=== PATIENT | female | born 1970 | race African-American/Black ===

== ENCOUNTER 2021-07-12 08:56 | Emergency (ER) | payer OTHER ==
[~2021-07-12] VITALS: Ht 160 cm; Wt 73.8 kg
[2021-07-12 10:22] LABS: BASOPHILS % 1.5 % (0.0-2.0); EOSINOPHILS % 3.8 % (0.0-5.0); HEMATOCRIT. 42.8 % (36.0-48.0); HEMOGLOBIN. 13.7 g/dL (12.0-16.0); LYMPHOCYTES % 40.9 % (20.0-50.0); MEAN CORPUSCULAR HEMOGLOBIN 26.4 pg (28.0-32.0); MEAN CORPUSCULAR VOLUME 82.6 fL (81.0-99.0); MEAN PLATELET VOLUME 7.1 fl (7.4-10.4); MONOCYTES % 14.6 % (2.0-8.0); NEUTROPHILS % 39.2 % (40.0-76.0); PLATELET 304 x1000/uL (130-400); RED BLOOD CELL COUNT 5.18 mill/uL (4.2-5.4); RED CELL DISTRIBUTION WIDTH 15.1 % (11.6-14.6)
[2021-07-12 10:29] LABS: CHLORIDE 108 mEq/L (98-107)
[2021-07-12 10:32] LABS: ETHANOL BLOOD < 10 mg/dL
[2021-07-12 11:02] LABS: CLARITY URINE CLEAR (CLEAR); COLOR URINE YELLOW (YELLOW); KETONES URINE NEGATIVE (NEGATIVE); LEUKOCYTE ESTERASE URINE 3+ (NEGATIVE); NITRITE URINE NEGATIVE (NEGATIVE); OCCULT BLOOD URINE NEGATIVE (NEGATIVE); PROTEIN URINE NEGATIVE (NEGATIVE); SPECIFIC GRAVITY URINE 1.003 (1.005-1.030); UROBILINOGEN URINE 0.2 E.U./dL (0.2-1.0)
[2021-07-12 11:39] LABS: *AMPHETAMINES SCREEN URINE NEGATIVE (NEGATIVE); *BARBITURATES SCREEN URINE NEGATIVE (NEGATIVE); *BENZODIAZEPINES SCREEN URINE NEGATIVE (NEGATIVE); *COCAINE SCREEN URINE NEGATIVE (NEGATIVE); OPIATES URINE SCREEN NEGATIVE (NEGATIVE)
[2021-07-12 11:40] LABS: CANNABINOID URINE SCREEN NEGATIVE (NEGATIVE); PHENCYCLIDINE URINE SCREEN NEGATIVE (NEGATIVE)
[2021-07-12 11:41] LABS: METHADONE URINE SCREEN NEGATIVE (NEGATIVE)
[2021-07-12] MEDS ORDERED: ACETAMINOPHEN 325MG TABLET PO ONE (12:15)
[2021-07-12 14:46] VITALS: BP 131/95
== END 2021-07-12 14:46 | disposition short-term general hospital (02) ==
LOC: ER 08:56 → CANBEDREQ 07-13 05:47
DX: I63.9 Cerebral infarction, unspecified (principal); I10 Essential (primary) hypertension; Z88.0 Allergy status to penicillin; Z88.1 Allergy status to other antibiotic agents; Z98.890 Other specified postprocedural states
CPT/HCPCS: 36415; 71045; 80053; 80305; 80320; 81003; 82962; 85025; 87077; 87186; 93005; 99285; G0480

== ENCOUNTER 2022-03-03 17:41 | Emergency (ER) | payer MEDICAID, OTHER ==
[~2022-03-03] VITALS: Ht 170.2 cm; Wt 100.0 kg
[2022-03-03] MEDS ORDERED: LIDOCAINE HCL 1% 20ML VIAL (Pyxis) INJ INFIL ONE (18:15)
[2022-03-03] MEDS ORDERED: TETANUS, DIPHTHERIA, PERTUSSIS VAC/PF 0.5ML (>10YR OLD) IM ONE (18:15)
[2022-03-03 18:37] LABS: CLARITY URINE CLEAR (CLEAR); COLOR URINE YELLOW (YELLOW); KETONES URINE NEGATIVE (NEGATIVE); LEUKOCYTE ESTERASE URINE 2+ (NEGATIVE); NITRITE URINE NEGATIVE (NEGATIVE); OCCULT BLOOD URINE NEGATIVE (NEGATIVE); PROTEIN URINE NEGATIVE (NEGATIVE); SPECIFIC GRAVITY URINE 1.004 (1.005-1.030); UROBILINOGEN URINE 0.2 E.U./dL (0.2-1.0)
[2022-03-03 18:41] LABS: HEMATOCRIT. 34.9 % (36.0-48.0); HEMOGLOBIN. 11.3 g/dL (12.0-16.0); MEAN CORPUSCULAR HEMOGLOBIN 25.5 pg (28.0-32.0); MEAN CORPUSCULAR VOLUME 78.6 fL (81.0-99.0); MEAN PLATELET VOLUME 6.9 fl (7.4-10.4); PLATELET 379 x1000/uL (130-400); RED BLOOD CELL COUNT 4.44 mill/uL (4.2-5.4); RED CELL DISTRIBUTION WIDTH 17.5 % (11.6-14.6)
[2022-03-03 18:42] LABS: CHLORIDE 100 mEq/L (98-107)
[2022-03-03 18:47] LABS: *AMPHETAMINES SCREEN URINE NEGATIVE (NEGATIVE); *BARBITURATES SCREEN URINE NEGATIVE (NEGATIVE); *BENZODIAZEPINES SCREEN URINE PRESUMTIVE POSITIVE (NEGATIVE); *COCAINE SCREEN URINE NEGATIVE (NEGATIVE); CANNABINOID URINE SCREEN PRESUMTIVE POSITIVE (NEGATIVE); METHADONE URINE SCREEN NEGATIVE (NEGATIVE); OPIATES URINE SCREEN NEGATIVE (NEGATIVE); PHENCYCLIDINE URINE SCREEN NEGATIVE (NEGATIVE)
[2022-03-03 18:59] LABS: ETHANOL BLOOD 30 mg/dL
[2022-03-03 19:00] LABS: PLATELET ESTIMATE NORMAL
[2022-03-03] MEDS ORDERED: POTASSIUM CHLORIDE 20MEQ TABLET SR PO ONE (19:30)
[2022-03-03] MEDS: NITROFURANTOIN 100MG M/M CAPSULE PO SCH (20:45)
[2022-03-04] MEDS ORDERED: LORAZEPAM 1MG TABLET PO ONE (00:30)
[2022-03-04] MEDS: ARIPIPRAZOLE 5MG TABLET PO SCH (10:00)
[2022-03-04] MEDS: PAROXETINE HCL 10MG TABLET PO SCH (10:00)
[2022-03-04] MEDS: NITROFURANTOIN 100MG M/M CAPSULE PO SCH (10:00)
[2022-03-04] MEDS ORDERED: TRAZODONE HCL 50MG TABLET PO SCH (21:00)
[2022-03-05] MEDS ORDERED: ACETAMINOPHEN 325MG TABLET PO ONE (03:00)
[2022-03-05] MEDS ORDERED: TRAZODONE HCL 50MG TABLET PO SCH (03:00)
[2022-03-05] MEDS: NITROFURANTOIN 100MG M/M CAPSULE PO SCH ×2 (03:47→10:25)
[2022-03-05] MEDS: PAROXETINE HCL 10MG TABLET PO SCH (09:00)
[2022-03-05] MEDS: ARIPIPRAZOLE 5MG TABLET PO SCH (09:00)
[2022-03-05 12:00] VITALS: BP 152/85
== END 2022-03-05 14:08 ==
LOC: ER 17:41
DX: S61.512A Laceration without foreign body of left wrist, initial encounter (principal); F33.9 Major depressive disorder, recurrent, unspecified; N39.0 Urinary tract infection, site not specified; E87.6 Hypokalemia; Z20.822 Contact with and (suspected) exposure to COVID-19; D64.9 Anemia, unspecified; I10 Essential (primary) hypertension; F13.90 Sedative, hypnotic, or anxiolytic use, unspecified, uncomplicated; F12.90 Cannabis use, unspecified, uncomplicated; X78.8XXA Intentional self-harm by other sharp object, initial encounter; Z63.79 Other stressful life events affecting family and household; Y93.89 Activity, other specified; Y92.89 Other specified places as the place of occurrence of the external cause; Z91.51 Personal history of suicidal behavior; Z88.0 Allergy status to penicillin
CPT/HCPCS: 12004; 36415; 73110; 80053; 80305; 80307; 80320; 80329; 81003; 81025; 85025; 90715; 99285; C9803; J3490; U0003; U0005; G0480